=== PATIENT | male | born 1960 | race Two or more races ===

== ENCOUNTER 2018-01-03 05:47 | Emergency (ER) | payer BC ==
[2018-01-03] MEDS ORDERED: HYDROMORPHONE HCL INJ/PF 2 MG/ML AMPULE IV ONE ×2 (05:53→08:38)
--- NOTE | 2018-01-03 05:56 | ER Document Report ---
ED Medical Screen (RME) - General Stated Complaint: FLANK PAIN Time Seen by Provider: 01/03/18 05:51 Mode of Arrival: Medic Information source: Patient - HPI Patient complains to provider of: LEFT FLANK AND ABDO PAIN Notes: 01/03/18 05:55 Patient is here via EMS with complaints of left flank and abdominal pain. Patient states that he was having some dark urine yesterday. No fevers. He has a history of kidney stones in the past. The patient was given a total of 60 mg of Toradol IV by EMS as well as Zofran. He is now having pain again. He states that this feels like prior kidney stone he has had in the past. Physical exam: patient appears in distress and uncomfortable. Some tenderness to the left lower quadrant. An initial examination was made on the patient as part of the triage process, and it was determined a more comprehensive evaluation was necessary. Initial labs were ordered and patient was transferred to another provider in the ED who assumed care and finished evaluation and plan.
[2018-01-03 06:17] LABS: ABSOLUTE BASOPHILS # (AUTO) 0.1 10^3/uL (0.0-0.2); ABSOLUTE EOSINOPHILS # (AUTO) 0.3 10^3/uL (0.0-0.6); ABSOLUTE LYMPHOCYTES (AUTO) 4.9 10^3/uL (0.5-4.7); ABSOLUTE MONOCYTES (AUTO) 0.9 10^3/uL (0.1-1.4); ABSOLUTE NEUT (AUTO) 4.2 10^3/uL (1.7-8.2); BASOPHILS % (AUTO) 0.9 % (0-2); HEMATOCRIT 45.7 % (37.9-51.0); LYMPHOCYTES % (AUTO) 47.3 % (13-45); MEAN CORPUSCULAR HEMOGLOBIN 30.4 pg (27.0-33.4); MEAN CORPUSCULAR HGB CONC 34.9 g/dL (32.0-36.0); MEAN CORPUSCULAR VOLUME 87 fl (80-97); PLATELET COUNT 272 10^3/uL (150-450); RED BLOOD COUNT 5.25 10^6/uL (4.35-5.55); RED CELL DISTRIBUTION WIDTH 12.6 % (11.5-14.0); SEGMENTED NEUTROPHILS % (AUTO) 39.8 % (42-78); TOTAL CELLS COUNTED % (AUTO) 100 %; WHITE BLOOD COUNT 10.4 10^3/uL (4.0-10.5)
[2018-01-03] MEDS ORDERED: ONDANSETRON HCL INJ/PF 4 MG/2 ML SDV IV ONE (06:24)
--- NOTE | 2018-01-03 06:37 | RADIOLOGY REPORT (SQ) ---
EXAM DESCRIPTION: CT ABDOMEN AND PELVIS WITHOUT CONTRAST CLINICAL HISTORY: RIGHT FLANK AND ABDO PAIN COMPARISON: None Available. TECHNIQUE: CT of the abdomen and pelvis without IV contrast. FINDINGS: Abdomen: The liver has normal size and density. No calcified gallstones. The spleen, pancreas, and adrenal glands are unremarkable. 4 mm obstructing calculus in the proximal left ureter producing mild left hydroureter and hydronephrosis. The aorta and IVC have normal caliber and position. No free intraperitoneal air. The stomach and duodenum have normal course. Pelvis: Enlarged prostate. Urinary bladder is unremarkable. No free pelvic fluid or lymphadenopathy. No dilated loops of large or small bowel. Normal appendix. The visualized lung bases are clear. No destructive bone lesions identified. Degenerative spondylosis of the visualized thoracic and lumbar spine. DLP: 660.62 mGy-cm IMPRESSION: 1. There is a 0.4 cm obstructing calculus in the proximal left ureter producing mild left hydroureter and hydronephrosis. 2. Enlarged prostate. This exam was performed according to our departmental dose-optimization program, which includes automated exposure control, adjustment of the mA and/or kV according to patient size and/or use of iterative reconstruction technique.
[2018-01-03 06:38] LABS: ALANINE AMINOTRANSFERASE 34 U/L (21-72); ALBUMIN 4.5 g/dL (3.5-5.0); ALKALINE PHOSPHATASE 70 U/L (38-126); ANION GAP 16 (5-19); ASPARTATE AMINO TRANSFERASE 27 U/L (17-59); BILIRUBIN,DIRECT 0.3 mg/dL (0.0-0.4); BILIRUBIN,TOTAL 0.6 mg/dL (0.2-1.3); BLOOD UREA NITROGEN 21 mg/dL (7-20); CALCIUM 9.8 mg/dL (8.4-10.2); CARBON DIOXIDE 21 mmol/L (22-30); CHLORIDE 102 mmol/L (98-107); GLUCOSE 175 mg/dL (75-110); LIPASE 49.7 U/L (23-300); POTASSIUM 4.6 mmol/L (3.6-5.0); TOTAL PROTEIN 6.8 g/dL (6.3-8.2)
[2018-01-03] MEDS ORDERED: TAMSULOSIN HCL 0.4 MG CAP.SR.24H PO ONE (06:50)
[2018-01-03] MEDS ORDERED: METOCLOPRAMIDE HCL INJ/PF 10 MG/2 ML SDV IV ONE ×2 (07:30→08:38)
[2018-01-03 07:53] LABS: APPEARANCE,URINE SLIGHTLY-CLOUDY; BILIRUBIN,URINE NEGATIVE (NEGATIVE); COLOR,URINE YELLOW; GLUCOSE, URINE NEGATIVE (NEGATIVE); KETONES,URINE NEGATIVE (NEGATIVE); LEUKOCYTE ESTERASE,URINE NEGATIVE (NEGATIVE); NITRITE,URINE NEGATIVE (NEGATIVE); PROTEIN,URINE NEGATIVE (NEGATIVE); URINE SPECIFIC GRAVITY 1.019; UROBILINOGEN,URINE NEGATIVE mg/dL (<2.0)
[2018-01-03] MEDS: NORMAL SALINE 1000 ML 1,000 ML IV PRN ×2 (08:11→08:13)
[2018-01-03] MEDS ORDERED: OXYCODONE-ACETAMINOPHEN 5-325 MG TABLET PO ONE (08:24)
--- NOTE | 2018-01-03 08:28 | ER Document Report ---
ED General - General Chief Complaint: Flank Pain Stated Complaint: FLANK PAIN Time Seen by Provider: 01/03/18 05:51 Mode of Arrival: Medic TRAVEL OUTSIDE OF THE [place] IN LAST 30 DAYS: No - HPI Patient complains to provider of: Left flank pain Notes: Patient coming in with acute onset of left flank pain patient states difficulty in urinating. Patient states similar to his kidney stones he had approximately 16 years ago. Patient denies any trauma denies any fevers chills patient has had some nausea and vomiting. Denies any diarrhea. Resting comfortably upon my evaluation patient is very receiving antiemetics and pain medication - Related Data Allergies/Adverse Reactions: No Known Allergies Allergy (Unverified 01/03/18 06:02) Past Medical History - General Information source: Patient - Social History Smoking Status: Former Smoker Chew tobacco use (# tins/day): No Frequency of alcohol use: Social Drug Abuse: None Family History: Reviewed & Not Pertinent Patient has suicidal ideation: No Patient has homicidal ideation: No - Past Medical History Cardiac Medical History: Reports: Hx Hypertension Renal/ Medical History: Denies: Hx Peritoneal Dialysis Review of Systems - Review of Systems Constitutional: No symptoms reported EENT: No symptoms reported Cardiovascular: No symptoms reported Respiratory: No symptoms reported Gastrointestinal: No symptoms reported Genitourinary: Flank pain Male Genitourinary: No symptoms reported Musculoskeletal: No symptoms reported Skin: No symptoms reported Hematologic/Lymphatic: No symptoms reported Neurological/Psychological: No symptoms reported -: Yes All other systems reviewed and negative Physical Exam - Vital signs Vitals: Pulse Ox 98 01/03/18 05:55 Interpretation: Normal - General General appearance: Appears well, Alert - HEENT Head: Normocephalic, Atraumatic Eyes: Normal Pupils: PERRL - Respiratory Respiratory status: No respiratory distress Chest status: Nontender Breath sounds: Normal Chest palpation: Normal - Cardiovascular Rhythm: Regular Heart sounds: Normal auscultation Murmur: No - Abdominal Inspection: Normal Distension: No distension Bowel sounds: Normal Tenderness: Nontender Organomegaly: No organomegaly - Back Back: Normal, Nontender - Extremities General upper extremity: Normal inspection, Nontender, Normal color, Normal ROM , Normal temperature General lower extremity: Normal inspection, Nontender, Normal color, Normal ROM , Normal temperature, Normal weight bearing. No: Doris's sign - Neurological Neuro grossly intact: Yes Cognition: Normal Orientation: AAOx4 Radha Coma Scale Eye Opening: Spontaneous [place] Coma Scale Verbal: Oriented Radha Coma Scale Motor: Obeys Commands [place] Coma Scale Total: 15 Speech: Normal Motor strength normal: LUE, RUE, LLE, RLE Sensory: Normal - Psychological Associated symptoms: Normal affect, Normal mood - Skin Skin Temperature: Warm Skin Moisture: Dry Skin Color: Normal Course - Re-evaluation Re-evalutation: 01/03/18 13:11 CT scan shows 4 mm obstructing kidney stone. Patient has no signs of urosepsis or overt kidney failure. Pain is controlled with IV Dilaudid patient had multiple bouts of nausea. Controlled with antiemetics. Patient will be discharged home follow-up with urology. - Vital Signs Vital signs: Temp Pulse Resp BP Pulse Ox 138/87 H 94 01/03/18 09:00 01/03/18 09:01 - Laboratory Result Diagrams: 01/03/18 06:00 01/03/18 06:00 Laboratory results interpreted by me: 01/03/18 01/03/18 01/03/18 06:00 06:00 06:45 Seg Neutrophils % 39.8 L Lymphocytes % 47.3 H Absolute Lymphocytes 4.9 H Carbon Dioxide 21 L BUN 21 H Glucose 175 H Urine Blood LARGE H Discharge - Discharge Clinical Impression: Kidney stone on left side Condition: Good Instructions: Flomax ([facility]), Kidney Stone ([facility]), Nausea or Vomiting, Nonspecific ([facility]), Oral Narcotic Medication ([facility]) Additional Instructions: Your CAT scan today shows a 4 mm kidney stone more likely causing her pain. There is no signs of infection. Return to ER immediately or see a local urologist if you develop a fever. Take medications as prescribed. He may also take Tylenol and Motrin for pain control. Please make sure you drink plenty of water to stay hydrated. Prescriptions: Ondansetron [Zofran Odt 4 mg Tablet] 4 mg PO Q4HP PRN #30 tab.rapdis PRN Reason: Promethazine HCl [Phenergan 25 mg Tablet] 25 mg PO Q4HP PRN #30 tablet PRN Reason: Oxycodone HCl 5 mg PO Q6 #40 tablet Tamsulosin HCl [Flomax 0.4 mg Cap.sr] 0.4 mg PO DAILY #7 cap.sr.24h Forms: Return to Work Referrals: EVELINA PRYOR PA-C [Primary Care Provider] - Follow up as needed MISSAEL ROLLE MD [NO LOCAL MD] - Follow up as needed ELODIA GANT II, MD [[facility]] - Follow up as needed
[2018-01-03 14:46] VITALS: BP 136/86
== END 2018-01-03 09:50 | disposition home or self-care (01) ==
LOC: ER 05:47
DX: N20.0 Calculus of kidney (principal); R10.9 Unspecified abdominal pain; Z87.891 Personal history of nicotine dependence
CPT/HCPCS: 96376; 99284; 96361; 96374; 96375; 36415; 83690; 85025; 80053; 81001; 74176; J2765; J1170; J2405; J7030